=== PATIENT | male | born 1965 | race Caucasian/White ===

== ENCOUNTER 2023-01-20 02:03 | Day surgery (SDC) | payer OTHER, SELFPAY ==
[2023-01-08 10:37] VITALS: BMI 34.1
--- NOTE | 2023-01-19 10:02 | PM.HPGS ---
History of Present Illness History of Present Illness Consent: Risks, benefits, and alternatives have been discussed and questions answered. Patient agrees to proceed with procedure. Chief complaint: neoplasm screening Narrative: Bart Zuleta is a 57 year old male referred for colon cancer screenng. His last colonoscopy was 2015 Review of Systems Review of Systems: All systems reviewed & are unremarkable except as noted in HPI and below PMFSH Social History Social History Smoking status: Never smoker Substance use type: does not use Living arrangements: with roommate(s) Spiritual care concerns: No Meds Home Medications and Allergies Home Medications Medication Instructions Recorded Confirmed Type losartan 100 mg tablet 100 mg PO DAILY 01/08/23 01/08/23 History warfarin 2.5 mg tablet 2.5 mg PO DAILY 01/08/23 01/20/23 History warfarin 6 mg tablet 6 mg PO DAILY 01/08/23 01/20/23 History Allergies Allergy/AdvReac Type Severity Reaction Status Date / Time No Known Allergies Allergy Verified 01/20/23 06:40 Exam Resp: Auscultation: clear to auscultation bilaterally Cardio: Rate: regular rate Rhythm: regular rhythm GI: GI Palp: Yes Soft to palpation and No Tenderness to palpation present (GI) Assessment and Plan Assessment and plan (1) Colon cancer screening: Code(s): Z12.11 - Encounter for screening for malignant neoplasm of colon Status: Acute Assessment and Plan: Colonoscopy with possible biopsy or polypectomy or cautery or injection of substances.
[2023-01-20 06:41] VITALS: BP 134/78; PULSE 64; RESP 18; TEMP 36.1; O2SAT 100
[2023-01-20] MEDS: LACTATED RINGERS 1,000 ML 150 ML IV CONT (06:51)
--- NOTE | 2023-01-20 07:44 | WPDANESEPPF ---
Anes - Initial Pre Proc Eval Procedure: Operation Date: 01/20/23 08:00 Proposed Procedures p Screening Colonoscopy - Jt Collier MD Date/Time: 01/20/23 07:44 Surgeon: Jt Collier MD Pre Op Diagnosis: neoplasm screening Patient Data Age: 57 Gender: M Height: 1.93 m Weight: 146.2 kg Last Vital Signs Temp 97 F L 01/20/23 06:41 Pulse 64 01/20/23 06:41 Resp 18 01/20/23 06:41 BP 134/78 01/20/23 06:41 Pulse Ox 100 01/20/23 06:41 O2 Del Method Room Air 01/20/23 06:41 Allergies Allergy/AdvReac Type Severity Reaction Status Date / Time No Known Allergies Allergy Verified 01/20/23 06:40 Home Medications Medication Instructions Recorded Confirmed Type losartan 100 mg tablet 100 mg PO DAILY 01/08/23 01/08/23 History warfarin 2.5 mg tablet 2.5 mg PO DAILY 01/08/23 01/20/23 History warfarin 6 mg tablet 6 mg PO DAILY 01/08/23 01/20/23 History Patient hx anesthesia problems: none Family hx anesthesia problems: none Results Review: All pre-operative results and documents have been reviewed as part of the pre-operative evaluation. [facility] Social History Social History Smoking status: Never smoker Substance use type: does not use Living arrangements: with roommate(s) Spiritual care concerns: No Anes - Eval Final PreProcedure Day of Procedure 01/20/23 07:44 Patient weight: morbidly obese Heart: regular rate and rhythm Lungs: clear to auscultation Airway: Mallampati scale class III Neurological: alert and oriented Last oral intake: >/= 8 hours ASA classification: III Emergent: no Anesthetic plan: proceed Anesthesia type and monitoring: general GIVS and standard monitoring Results Review: All pre-operative results and documents have been reviewed as part of the pre-operative evaluation. Informed Consent: The patient's anesthetic plan and its attendant risks and benefits were discussed with the patient/family/POA. Questions were solicited and answers provided to the satisfaction of the patient/family/POA.
[2023-01-20 08:07] VITALS: BP 109/67; PULSE 66; RESP 23; O2SAT 97
[2023-01-20 08:17] VITALS: BP 111/74; PULSE 65; RESP 23; O2SAT 100
[2023-01-20 08:27] VITALS: BP 110/73; PULSE 60; RESP 21; O2SAT 100
== END 2023-01-20 08:31 | disposition home or self-care (01) ==
PROVIDERS: PCP Internal Medicine; Visit Provider Internal Medicine Gastroenterology
PROC: 0DJD8ZZ Inspection of Lower Intestinal Tract, Via Natural or Artificial Opening Endoscopic (ICD-10-PCS; CPT 45378; principal; 2023-01-20 08:00)
DX: Z12.11 Encounter for screening for malignant neoplasm of colon (principal); K57.30 Diverticulosis of large intestine without perforation or abscess without bleeding; Z86.010 Personal history of colon polyps; E66.01 Morbid (severe) obesity due to excess calories; Z68.39 Body mass index [BMI] 39.0-39.9, adult
CPT/HCPCS: 45378; J2704; J7120